=== PATIENT | female | born 1960 | race Caucasian/White ===

== ENCOUNTER 2019-09-04 10:24 | Emergency (ER) | payer BC ==
[~2019-09-04] VITALS: Ht 170.2 cm; Wt 81.6 kg
[2019-09-04 10:29] VITALS: BP_SYST 133
[2019-09-04] MEDS ORDERED: LIDOCAINE VISCOUS 2%, 15 ML UDC MM ONE (10:45)
[2019-09-04] MEDS ORDERED: DICYCLOMINE HCL 10 MG/5 ML SOLUTION PO ONE (10:45)
[2019-09-04] MEDS ORDERED: MAG-AL HYDROX/SIMETH 30 ML UDC PO ONE (10:45)
[2019-09-04 12:33] VITALS: BP_SYST 125
== END 2019-09-04 12:33 | disposition home or self-care (01) ==
LOC: EDBD 10:24 → SED 10:24
DX: K29.70 Gastritis, unspecified, without bleeding (principal); I10 Essential (primary) hypertension
CPT/HCPCS: 93005; 99284; J2001